=== PATIENT | female | born 1960 | race Caucasian/White ===

== ENCOUNTER → 2016-09-21 | Outpatient (CLI) | payer MEDICAID ==
[~2016-09-21] MED LIST: ATIVAN1 M1 PO; CENESTIN1.25 MG PO; NORCO 325 MG-51 TAB PO; PAXIL20 MG PO
[2016-09-21 09:09] LABS: HEMOGLOBIN 14.3 g/dL (12.2-16.2); LYMPH # 1.2 K/mm3 (0.7-4.5); LYMPH % 20.1 % (10-50.0)
[2016-09-21 10:36] LABS: BUN 28 mg/dL (7-18); GFR (ESTIMATED) 57 ML/MIN (59-)
== END ==
LOC: LAB 09:01
PROVIDERS: Nurse Practitioner Obstetrics & Gynecology
DX: Z01.419 Encounter for gynecological examination (general) (routine) without abnormal findings (principal)

== ENCOUNTER → 2016-09-29 | Outpatient (CLI) | payer MEDICAID ==
--- NOTE | 2016-10-07 15:11 | RADIOLOGY REPORT PS360 ---
DIG MAMM-SCREEN JUAN C W/CAD CAD Screening COMPARISON: Digital mammograms 07/12/2014 and 07/24/2015 INDICATION: There is a history of breast cancer in the patient's paternal aunt diagnosed after menopause. There have been previous cyst aspirations in both breasts. TECHNIQUE: Standard CC and MLO images were obtained. R2 CAD reviewed. FINDINGS: There is a diffusely dense and heterogenic parenchymal pattern somewhat lessening the sensitivity of mammography. There is large spherical opacity upper outer quadrant right breast approximately 10:00 position. There is a biopsy clip adjacent to this spherical opacity. This likely is a dominant cyst and was seen on the previous studies but has shown interval enlargement from the most recent mammogram. The borders are well circumscribed and certainly has benign features. There is no mention in the patient history of patient complaints regarding tenderness at this location. There are other smaller opacities in each breast likely representing cysts. Previous bilateral ultrasound in July 2014 showed multiple benign-appearing cyst in each breast. There are no suspicious microcalcifications, there is a benign-appearing calcification right breast. IMPRESSION: Heterogenic dense parenchymal pattern with large dominant spherical opacity right breast which has been seen previously but has shown interval enlargement but again likely represents a large benign cyst. In view of the interval enlargement suggest patient have an ultrasound the right breast at which time cyst aspiration can be offered to the patient if it is symptomatic. BI-RADS CATEGORY: 0_Incomplete: Need additional imaging RECOMMENDED FOLLOWUP: USB ULTRASOUND-BREAST (A letter has been sent to the patient regarding results of the study.)
== END ==
LOC: RAD 09:43
DX: Z12.31 Encounter for screening mammogram for malignant neoplasm of breast (principal)
CPT/HCPCS: G0202